=== PATIENT | male | born 1975 | race Caucasian/White ===

== ENCOUNTER 2016-03-30 14:33 | Inpatient (IN) | payer OTHER ==
[~2016-03-30] VITALS: Ht 172.7 cm; Wt 96.7 kg
[~2016-03-30 14:33] MED LIST: AMOX TR-K CLV1 EAC4; ATARAX,VISTARIL25 MG PO; BUPROPION XL150 MG PO; CATAPRES0.1 MG PO; DURAGESIC25 MCG TD; KEFLEX500 MG PO; NEURONTIN300 MG PO; NOHOMEMEDS; OXYCODONE HCL10 MG PO; PEN-VEE K,VEET500 MG PO; PERCOCET 7.5-31 EACH PO; ROBITUSSIN100 MG/5 M PO; SKELAXIN400 M1 PO; SOMA350 MG PO; TRILEPTAL300 MG PO; ULTRAM50 MG PO; XANAX0.5 MG PO
[2016-03-30] MEDS ORDERED: CLONIDINE HCL0.1 MG PO (15:05)
[2016-03-30] MEDS ORDERED: TRILEPTAL300 MG PO (15:06)
[2016-03-30] MEDS ORDERED: XANAX0.5 MG PO (15:06)
[2016-03-30] MEDS ORDERED: SOMA350 MG PO (15:07)
[2016-03-30 16:51] LABS: HEMATOCRIT 42.9 % (38.0-50.0); MCH 30.6 PG (29.0-34.0); MCHC 36.4 G/DL (30.0-36.0); MCV 84.3 FL (86-99); MEAN PLAT.VOLUME 11.2 uM^3 (9.0-12.4); PLATELET COUNT 180 K/uL (156-360); RBC DIS.WIDTH-CV 12.8 % (11.8-14.6); RBC DIS.WIDTH-SD 38.6 % (39-53); RED BLOOD COUNT 5.09 M/uL (4.00-5.50); WHITE BLOOD COUNT 7.8 K/uL (4.1-10.2)
[2016-03-30 16:58] LABS: CHLORIDE 113 mEq/L (99-109); POTASSIUM 3.9 mEq/L (3.7-5.4); SODIUM 145 mEq/L (136-147)
[2016-03-30 17:01] LABS: GLUCOSE 103 mg/dL (70-99)
[2016-03-30 17:02] LABS: ANION GAP 8 MEQ/L (2-14)
[2016-03-30 17:03] LABS: TOTAL BILIRUBIN 0.4 mg/dL (0.0-1.0)
[2016-03-30 17:04] LABS: ALKALINE PHOSPHATASE 79 IU/L (3-129); SERUM ETHYL ALCOHOL < 10 mg/dL
[2016-03-30 17:05] LABS: GFR ESTIMATE (CALCULATED) > 59 mL/min/
[2016-03-30 17:06] LABS: UREA NITROGEN (BUN) 16 mg/dL (9-23)
[2016-03-30] MEDS ORDERED: TRILEPTAL600 MG PO (18:07)
[2016-03-30] MEDS ORDERED: ATARAX,VISTARIL25 MG PO (18:08)
[2016-03-30 19:01] LABS: ADD MIUA? NO; BILIRUBIN NEGATIVE; BLOOD NEGATIVE; COLOR YELLOW ((YELLOW)); GLUCOSE (STRIP) NEGATIVE; KETONES NEGATIVE; LEUKOCYTES NEGATIVE; NITRITE NEGATIVE; PROTEIN (STRIP) NEGATIVE; SPECIFIC GRAVITY 1.031 (1.000-1.030); UROBILINOGEN 0.2 MG/DL (0.2-1.0)
[2016-03-30 19:10] LABS: ADD MEDTOX COMMENT Y; AMPHETAMINE NEGATIVE (500 ng/mL); BARBITURATES NEGATIVE (200 ng/mL); BENZODIAZEPINES PRESUMPTIVE POSITIVE (150 ng/mL); COCAINE NEGATIVE (150 ng/mL); INTERNAL CONTROLS VALID? YES; METHADONE NEGATIVE (200 ng/mL); METHAMPHETAMINE NEGATIVE (500 ng/mL); OPIATES (MORPHINE) NEGATIVE (100 ng/mL); OXYCODONE NEGATIVE (100 ng/mL); PHENCYCLIDINE NEGATIVE (25 ng/mL); PROPOXYPHENE NEGATIVE (300 ng/mL); THC CANNABINOIDS PRESUMPTIVE POSITIVE (50 ng/mL); TRICYCLIC ANTIDEPRESSANTS NEGATIVE (300 ng/mL)
[2016-03-30 19:49] LABS: BENZODIAZEPINES, URINE SCREEN POSITIVE (200 ng/mL)
[2016-03-30] MEDS ORDERED: OXYCODONE HCL10 MG PO (21:15)
[2016-03-31 14:15] VITALS: BP 162/104
[2016-03-31 16:14] VITALS: BP 145/98
[2016-04-01 07:48] VITALS: BP 110/61
[2016-04-01 15:46] VITALS: BP 138/81
[2016-04-02 07:55] VITALS: BP 135/86
[2016-04-02 15:32] VITALS: BP 129/74
[2016-04-03 09:48] VITALS: BP 135/91
[2016-04-03 15:45] VITALS: BP 150/94
[2016-04-04 09:16] VITALS: BP 137/85
[2016-04-04 15:35] VITALS: BP 127/61
[2016-04-05 08:00] VITALS: BP 159/89
[2016-04-05] MEDS ORDERED: BUPROPION XL150 MG PO (11:30)
== END 2016-04-05 14:05 | disposition home or self-care (01) | DRG 885 ==
LOC: EME → EDBD 14:33 → EME 14:33 → 1WEST 03-31 10:02 → EDOF 03-31 10:02 → 1WEST 03-31 13:58
PROVIDERS: Emergency Medicine
DX: F33.2 Major depressive disorder, recurrent severe without psychotic features (principal); R45.851 Suicidal ideations; F43.10 Post-traumatic stress disorder, unspecified; F41.1 Generalized anxiety disorder; F63.9 Impulse disorder, unspecified; G89.29 Other chronic pain; I10 Essential (primary) hypertension; F17.200 Nicotine dependence, unspecified, uncomplicated
CPT/HCPCS: 80053; 81003; 84999; 85027; 90837; 97150 GO; 97167 GO; 99281; 99285; G0480; Q0177

== ENCOUNTER 2016-08-31 00:50 | Inpatient (IN) | payer OTHER ==
[~2016-08-31] VITALS: Ht 172.7 cm; Wt 80.0 kg
[~2016-08-31 00:50] MED LIST changes: +CLONIDINE HCL0.1 MG PO; +TRILEPTAL600 MG PO
[2016-08-31 01:51] LABS: EOSINOPHIL (%) 3.5 % (0-5); EOSINOPHIL COUNT 0.3 K/uL (0-0.3); HEMATOCRIT 44.4 % (38.0-50.0); IMMATURE GRANULOCYTE (%) 0.3 % (0.0-0.7); INSTRUMENT ABS NEUTROPHIL CT 4.2 K/uL; LYMPHOCYTE COUNT 2.5 K/uL (1.0-2.8); MCH 29.4 PG (29.0-34.0); MCHC 34.9 G/DL (30.0-36.0); MCV 84.3 FL (86-99); MEAN PLAT.VOLUME 11.2 uM^3 (9.0-12.4); MONOCYTE (%) 9.4 % (3-12); MONOCYTE COUNT 0.7 K/uL (0-0.8); NEUTROPHIL (%) 54.4 % (45-76); NEUTROPHIL COUNT 4.2 K/uL (1.8-6.4); PLATELET COUNT 190 K/uL (156-360); RBC DIS.WIDTH-CV 12.4 % (11.8-14.6); RBC DIS.WIDTH-SD 37.5 % (39-53); RED BLOOD COUNT 5.27 M/uL (4.00-5.50); WHITE BLOOD COUNT 7.8 K/uL (4.1-10.2)
[2016-08-31 02:31] LABS: CHLORIDE 109 mEq/L (99-109)
[2016-08-31 02:32] LABS: POTASSIUM 3.5 mEq/L (3.7-5.4); SODIUM 141 mEq/L (136-147)
[2016-08-31 02:33] LABS: GLUCOSE 122 mg/dL (70-99)
[2016-08-31 02:35] LABS: ANION GAP 9 MEQ/L (2-14)
[2016-08-31 02:36] LABS: SERUM ETHYL ALCOHOL < 10 mg/dL
[2016-08-31 02:37] LABS: GFR ESTIMATE (CALCULATED) > 59 mL/min/
[2016-08-31 02:38] LABS: UREA NITROGEN (BUN) 17 mg/dL (9-23)
[2016-08-31 03:04] LABS: ADD MEDTOX COMMENT Y; AMPHETAMINE NEGATIVE (500 ng/mL); BARBITURATES NEGATIVE (200 ng/mL); BENZODIAZEPINES NEGATIVE (150 ng/mL); COCAINE NEGATIVE (150 ng/mL); INTERNAL CONTROLS VALID? YES; METHADONE NEGATIVE (200 ng/mL); METHAMPHETAMINE NEGATIVE (500 ng/mL); OPIATES (MORPHINE) NEGATIVE (100 ng/mL); OXYCODONE NEGATIVE (100 ng/mL); PHENCYCLIDINE NEGATIVE (25 ng/mL); PROPOXYPHENE NEGATIVE (300 ng/mL); THC CANNABINOIDS PRESUMPTIVE POSITIVE (50 ng/mL); TRICYCLIC ANTIDEPRESSANTS NEGATIVE (300 ng/mL)
[2016-08-31] MEDS ORDERED: KLONOPIN1 MG PO (06:19)
[2016-08-31] MEDS ORDERED: LATUDA40 MG PO (06:21)
[2016-08-31 07:21] VITALS: BP 132/82
[2016-08-31 15:45] VITALS: BP 105/62
[2016-09-01 07:44] VITALS: BP 110/72
== END 2016-09-01 13:24 | disposition home or self-care (01) | DRG 885 ==
LOC: EME 00:50 → EDOF 05:05 → 1WEST 05:59
PROVIDERS: Emergency Medicine
DX: F33.9 Major depressive disorder, recurrent, unspecified (principal); F43.12 Post-traumatic stress disorder, chronic; F43.23 Adjustment disorder with mixed anxiety and depressed mood; R45.851 Suicidal ideations; I10 Essential (primary) hypertension; F17.200 Nicotine dependence, unspecified, uncomplicated; Z91.5 Personal history of self-harm; Z81.3 Family history of other psychoactive substance abuse and dependence
CPT/HCPCS: 80048; 84999; 85025; 90837; 97150 GO; 97166 GO; 99281; 99285; G0480; Q0177

== ENCOUNTER 2016-10-02 20:30 | Inpatient (IN) | payer OTHER ==
[~2016-10-02] VITALS: Ht 172.7 cm; Wt 101.9 kg
[~2016-10-02 20:30] MED LIST changes: +KLONOPIN1 MG PO; +LATUDA40 MG PO
[2016-10-02 21:17] LABS: HEMATOCRIT 41.6 % (38.0-50.0); MCH 29.8 PG (29.0-34.0); MCHC 35.8 G/DL (30.0-36.0); MCV 83.2 FL (86-99); MEAN PLAT.VOLUME 11.1 uM^3 (9.0-12.4); PLATELET COUNT 181 K/uL (156-360); RBC DIS.WIDTH-CV 12.1 % (11.8-14.6); RBC DIS.WIDTH-SD 36.9 % (39-53)
[2016-10-02 21:27] LABS: CHLORIDE 109 mEq/L (99-109); POTASSIUM 3.5 mEq/L (3.7-5.4); SODIUM 141 mEq/L (136-147)
[2016-10-02 21:29] LABS: GLUCOSE 91 mg/dL (70-99)
[2016-10-02 21:30] LABS: ANION GAP 13 MEQ/L (2-14)
[2016-10-02 21:31] LABS: TOTAL BILIRUBIN 0.5 mg/dL (0.0-1.0)
[2016-10-02 21:32] LABS: SERUM ETHYL ALCOHOL < 10 mg/dL
[2016-10-02 21:33] LABS: ALKALINE PHOSPHATASE 89 IU/L (3-129); GFR ESTIMATE (CALCULATED) > 59 mL/min/
[2016-10-02 21:35] LABS: UREA NITROGEN (BUN) 12 mg/dL (9-23)
[2016-10-02 21:36] LABS: SALICYLATE < 5.0 MG/DL (15-30)
[2016-10-03 07:48] VITALS: BP 111/73
[2016-10-03 10:19] VITALS: BP 111/73
[2016-10-03 15:54] VITALS: BP 128/73
[2016-10-03 21:24] VITALS: BP 119/76
[2016-10-04 08:14] VITALS: BP 129/65
[2016-10-04 15:40] VITALS: BP 114/62
[2016-10-05 07:28] VITALS: BP 125/70
== END 2016-10-05 12:29 | disposition home or self-care (01) | DRG 885 ==
LOC: EME → EDBD 20:30 → EME 20:30 → EDOF 22:55 → 1WEST 22:55 → ENRESERV 10-03 00:38 → 1WEST 10-03 00:41 → EDOF 10-03 07:08 → ENRESERV 10-03 07:10 → 1WEST 10-03 07:15
PROVIDERS: Emergency Medicine
DX: F33.2 Major depressive disorder, recurrent severe without psychotic features (principal); R45.851 Suicidal ideations; F43.23 Adjustment disorder with mixed anxiety and depressed mood; F43.12 Post-traumatic stress disorder, chronic; G89.29 Other chronic pain; F12.90 Cannabis use, unspecified, uncomplicated; M25.511 Pain in right shoulder; F17.200 Nicotine dependence, unspecified, uncomplicated; I10 Essential (primary) hypertension; T42.4X1A Poisoning by benzodiazepines, accidental (unintentional), initial encounter; R11.2 Nausea with vomiting, unspecified
CPT/HCPCS: 80053; 81003; 85027; 90837; 97165 GO; 99281; 99285; G0480; J1630; J2060; Q0177

== ENCOUNTER 2016-11-01 20:44 | Emergency (ER) | payer OTHER ==
[~2016-11-01] VITALS: Ht 172.7 cm; Wt 101.2 kg
[2016-11-01 22:31] LABS: ADD MIUA? YES; BILIRUBIN NEGATIVE; BLOOD NEGATIVE; COLOR YELLOW ((YELLOW)); GLUCOSE (STRIP) NEGATIVE; KETONES NEGATIVE; LEUKOCYTES NEGATIVE; NITRITE NEGATIVE; PROTEIN (STRIP) NEGATIVE; SPECIFIC GRAVITY 1.025 (1.000-1.030)
[2016-11-01 22:45] LABS: HEMATOCRIT 46.9 % (38.0-50.0); MCH 29.7 PG (29.0-34.0); MEAN PLAT.VOLUME 11.3 uM^3 (9.0-12.4); PLATELET COUNT 196 K/uL (156-360); RBC DIS.WIDTH-SD 37.3 % (39-53); RED BLOOD COUNT 5.52 M/uL (4.00-5.50); WHITE BLOOD COUNT 12.1 K/uL (4.1-10.2)
[2016-11-01 22:46] LABS: BACTERIA NONE SEEN /HPF; EPITHELIAL CELLS RARE /HPF; MUCUS TRACE /LPF; RED BLOOD CELLS 0-5 /HPF (0-5); UCUL ADDED? NO; WHITE BLOOD CELLS 0-5 /HPF (0-5)
[2016-11-01 22:59] LABS: CHLORIDE 107 mEq/L (99-109); POTASSIUM 3.7 mEq/L (3.7-5.4); SODIUM 140 mEq/L (136-147)
[2016-11-01 23:01] LABS: GLUCOSE 77 mg/dL (70-99)
[2016-11-01 23:02] LABS: ANION GAP 10 MEQ/L (2-14)
[2016-11-01 23:03] LABS: TOTAL BILIRUBIN 0.6 mg/dL (0.0-1.0)
[2016-11-01 23:05] LABS: ALKALINE PHOSPHATASE 91 IU/L (3-129); GFR ESTIMATE (CALCULATED) > 59 mL/min/
[2016-11-01 23:06] LABS: UREA NITROGEN (BUN) 17 mg/dL (9-23)
[2016-11-01] MEDS ORDERED: PREDNISONE10 M1 PO (23:38)
[2016-11-01] MEDS ORDERED: TESSALON200 MG PO (23:38)
[2016-11-01] MEDS ORDERED: SKELAXIN800 MG PO (23:38)
[2016-11-01 23:52] VITALS: BP 147/106
== END 2016-11-01 23:53 | disposition home or self-care (01) ==
LOC: EME 20:44 → RME 20:44
PROVIDERS: Physician Assistant
DX: J20.9 Acute bronchitis, unspecified (principal); S39.012A Strain of muscle, fascia and tendon of lower back, initial encounter; X58.XXXA Exposure to other specified factors, initial encounter
CPT/HCPCS: 71020; 80053; 81003; 85027; 99281; 99284; J1885